=== PATIENT | female | born 1965 | race Caucasian/White ===

== ENCOUNTER 2022-02-25 07:01 | Emergency (ER) | payer OTHER ==
[~2022-02-25 07:01] MED LIST: AZITHROMYCIN250 MG PO; CEFUROXIME500 MG PO; GUAIFENESIN400 MG PO; HABITROL 21 MG P1 EA TD; LEVAQUIN750 MG PO; LUNESTA3 MG PO; LYRICA150 MG PO; MEDROL DOSEPAK 24 MG PO; PERCOCET 7.5-31 EACH PO; PREDNISONE 20 M20 MG PO; SENNA8.6 MG PO; TESSALON PERLE100 MG PO; VENTOLIN HFA 66.7 GM INH
[2022-02-25 07:34] LABS: HEMOGLOBIN 12.7 gm/dl (12.3-15.3); RED BLOOD COUNT 4.03 M/UL (4.00-5.10); WHITE BLOOD COUNT 7.4 K/UL (4.5-11.0)
[2022-02-25 08:02] LABS: BUN/CREATININE RATIO 13 (0-10)
[2022-02-25] MEDS ORDERED: NITROSTAT0.4 MG SL (09:28)
[2022-02-25] MEDS ORDERED: ASPIRIN CHEWABL81 MG PO (09:28)
== END 2022-02-25 09:28 | disposition left against medical advice (07) ==
LOC: ER1 07:01 → CDU 09:11 → ER1 09:11
PROVIDERS: Emergency Medicine
DX: R07.9 Chest pain, unspecified (principal); M54.9 Dorsalgia, unspecified; I10 Essential (primary) hypertension; E78.5 Hyperlipidemia, unspecified; Z87.01 Personal history of pneumonia (recurrent); F17.200 Nicotine dependence, unspecified, uncomplicated
CPT/HCPCS: 71045; 80053; 81001; 82550; 82553; 84484; 85025; 85379; 93005; 96374; 96375; 99283; 99285; J2270; J2405